=== PATIENT | female | born 1955 | race Hispanic/Latino ===

== ENCOUNTER 2018-09-01 06:59 | Day surgery (SDC) | payer OTHER, MEDICARE ==
[2018-08-30 14:59] VITALS: BP 141/62
[2018-08-30 15:02] LABS: EOSINOPHILS % (AUTO) 2.5 % (0.0-8.0); HEMATOCRIT 39.8 % (36-48); LYMPHOCYTES % (AUTO) 26.2 % (21.0-51.0); MEAN CORPUSCULAR HEMOGLOBIN 27.3 pg (27.0-33.0); MEAN CORPUSCULAR HGB CONC 33.7 g/dL (32.0-36.0); MEAN CORPUSCULAR VOLUME 81.1 fL (79-99); MONOCYTES % (AUTO) 8.2 % (3.0-13.0); NEUTROPHILS % (AUTO) 62.1 % (40.0-77.0); NUCLEATED RED BLOOD CELLS 0.1 % (0.0-0.19); PLATELET COUNT (AUTO) 239 K/uL (130-400); RED BLOOD CELL COUNT(AUTO) 4.91 MIL/uL (4.00-5.50); RED CELL DISTRIBUTION WIDTH 14.2 % (11.0-15.5); WHITE BLOOD COUNT (AUTO) 6.2 K/uL (4.8-10.8)
[2018-08-30 17:01] LABS: CREATININE 0.6 mg/dL (0.5-1.5); POTASSIUM 3.8 mmol/L (3.5-5.1)
[2018-09-01] VITALS (15 sets, daily range): BP systolic 94–135; BP diastolic 56–85
[~2018-09-01] VITALS: Ht 157.5 cm; Wt 105.3 kg
[~2018-09-01 06:59] MED LIST: FLUO-126 PO; HYDR12.54 PO
[2018-09-01] MEDS: LACTATED RINGERS 1000ML 1,000 ML IV SCH ×2 (08:20→10:24)
[2018-09-01] MEDS ORDERED: LIDOCAINE PF 2% 5ML ABBOJECT ONE (09:30)
[2018-09-01] MEDS ORDERED: FENTANYL CITRATE PF 50 MCG/1 ML 2ML VIAL ONE (09:30)
[2018-09-01] MEDS ORDERED: PROPOFOL 10 MG/ML 20ML VIAL IV ONE (09:30)
[2018-09-01] MEDS ORDERED: ONDANSETRON HCL 4 MG/2 ML VIAL ONE (09:30)
[2018-09-01] MEDS ORDERED: MIDAZOLAM HCL 1 MG/ML 2ML VIAL ONE (09:30)
[2018-09-01] MEDS ORDERED: DEXAMETHASONE SOD PHOSPHATE 10MG/ML 1ML VIAL ONE (09:30)
[2018-09-01] MEDS ORDERED: EPHEDRINE SULFATE 50 MG/ML AMPULE ONE (10:02)
[2018-09-01] MEDS ORDERED: MEPERIDINE-PF 25 MG/ML SYG ONE ×2 (10:36→10:52)
[2018-09-01] MEDS ORDERED: KETOROLAC TROMETHAMINE 30MG/ML ONE (10:44)
== END 2018-09-01 12:25 | disposition home or self-care (01) ==
LOC: DAH 06:59
PROVIDERS: ATTEND Surgery
DX: D05.11 Intraductal carcinoma in situ of right breast (principal); F32.9 Major depressive disorder, single episode, unspecified; I10 Essential (primary) hypertension; E66.01 Morbid (severe) obesity due to excess calories; Z68.41 Body mass index [BMI] 40.0-44.9, adult; Z87.891 Personal history of nicotine dependence; Z79.899 Other long term (current) drug therapy; Z96.651 Presence of right artificial knee joint; Z82.49 Family history of ischemic heart disease and other diseases of the circulatory system; Z83.3 Family history of diabetes mellitus
CPT/HCPCS: 19120; 36415; 80048; 85025; 88305; A4450; A4452; J1100; J1885; J2001; J2175 ×2; J2250; J2405; J2704; J3010; J3490; J7030; J7120